=== PATIENT | female | born 1950 | race Caucasian/White ===

== ENCOUNTER 2018-10-07 13:06 | Emergency (ER) | payer MEDICARE, OTHER ==
[2018-10-07 13:22] VITALS: BP 147/77
[2018-10-07] MEDS ORDERED: HYDROmorphone 1 MG/ML Syringe IVPUSH ONE ×3 (13:33→15:46)
[2018-10-07] MEDS ORDERED: Ondansetron 4 MG/2 ML SDV IV ONE (13:33)
--- NOTE | 2018-10-07 13:43 | EDM.PDOC ---
<Tracy Anne R - Last Filed: 10/07/18 14:44> ED HPI GENERAL MEDICAL PROBLEM - General Chief Complaint: Chest Pain Stated Complaint: SICK Time Seen by Provider: 10/07/18 13:06 Source of Information: Reports: Patient, Family, Old Records, RN, RN Notes Reviewed, Significant Other History Limitations: Reports: No Limitations - History of Present Illness INITIAL COMMENTS - FREE TEXT/NARRATIVE: Patient presents to the Emergency room with complaints of left side chest pain and SOB. The pain and SOB started a few days ago and has progressively worsened. She has had SOB, fever and sweating. She had had a non-productive cough. Pain is worsened by cough and rates pain 10/10. She has had decreased appetite and weakness. She has a history of metastatic colon cancer with mets to the lungs and liver. She had surgery to remove the colon cancer and had a PE afterwards in December 2014. She follows with Dr. Rogers for her oncology care. Onset: Gradual Duration: Getting Worse Location: Reports: Chest Quality: Reports: Sharp Severity: Severe Improves with: Reports: None Worsens with: Reports: Movement (cough) Associated Symptoms: Reports: Cough, Fever/Chills, Loss of Appetite, Malaise, Shortness of Breath Left Chest Pain Score (Numeric/FACES): 10 - Related Data Allergies Allergy/AdvReac Type Severity Reaction Status Date / Time Sulfa (Sulfonamide Allergy Hives Verified 10/07/18 13:47 Antibiotics) Home Meds: Home Meds Acetaminophen 500 mg PO Q6HR PRN 01/01/15 [History] Calcium Carbonate [Calcium] 500 mg PO DAILY 01/01/15 [History] Fenofibrate Nanocrystallized [Fenofibrate] 145 mg PO QPM 01/01/15 [History] Fluticasone Propionate [Flonase] 1 spray NS DAILY PRN 01/01/15 [History] Multivitamin [Multiple Vitamins] 1 each PO DAILY 01/01/15 [History] Rosuvastatin [Crestor] 20 mg PO DAILY 01/01/15 [History] Azelastine HCl [Astepro] 2 spray INH Q12HR 10/07/18 [History] DULoxetine [Cymbalta] 40 mg PO DAILY 10/07/18 [History] Levothyroxine 25 mcg PO DAILY 10/07/18 [History] Omeprazole 20 mg PO DAILY 10/07/18 [History] Past Medical History Cardiovascular History: Reports: Blood Clots/VTE/DVT, High Cholesterol, Hypertension Respiratory History: Reports: PE, Other (See Below) Gastrointestinal History: Reports: Chronic Constipation, GERD Genitourinary History: Reports: Other (See Below) (microscopic hematuria) Musculoskeletal History: Reports: Arthritis, Back Pain, Chronic (spinal stenosis ), Fibromyalgia Oncologic (Cancer) History: Reports: None, Colon Other Oncologic History: mets to liver and lungs - Past Surgical History HEENT Surgical History: Reports: Naso-Sinus Surgery, Tonsillectomy GI Surgical History: Reports: Colon (colon rescetion), Colonoscopy, Other (See Below) (liver biopsy) Female Surgical History: Reports: Breast Reduction Musculoskeletal Surgical History: Reports: Carpal Tunnel, Shoulder Surgery Social & Family History - Living Situation & Occupation Living situation: Reports: Occupation: Retired ED ROS GENERAL - Review of Systems Review Of Systems: See Below Constitutional: Reports: Fever, Malaise, Weakness, Fatigue, Diaphoresis, Decreased Appetite, Weight Loss HEENT: Reports: No Symptoms Respiratory: Reports: Shortness of Breath, Cough Cardiovascular: Reports: Chest Pain, Dyspnea on Exertion, Edema (pedal edema), Orthopnea Endocrine: Reports: Fatigue GI/Abdominal: Reports: Constipation, Decreased Appetite : Reports: No Symptoms Musculoskeletal: Reports: No Symptoms Skin: Reports: Diaphoresis Neurological: Reports: Weakness Psychiatric: Reports: No Symptoms Hematologic/Lymphatic: Reports: No Symptoms Immunologic: Reports: No Symptoms ED EXAM, GENERAL - Physical Exam Exam Limited By: No Limitations General Appearance: Alert, Moderate Distress, Other (chronically ill apearing with history of metastatic colon cancer) Eye Exam: Bilateral Eye: Normal Inspection, PERRL Ears: Normal External Exam, Normal Canal, Hearing Grossly Normal, Normal TMs Ear Exam: Bilateral Ear: TM normal Nose: Normal Inspection, Normal Mucosa, No Blood Throat/Mouth: Normal Inspection, Normal Lips, Normal Teeth, Normal Gums, Normal Oropharynx, Normal Voice, No Airway Compromise, Other (dry mouth) Head: Atraumatic, Normocephalic Neck: Normal Inspection, Supple, Non-Tender, Full Range of Motion Respiratory/Chest: Decreased Breath Sounds, Crackles, Other (left side chest tender to palpation) Cardiovascular: Normal Peripheral Pulses, Regular Rate, Rhythm, No Gallop, No JVD, No Murmur, No Rub Peripheral Pulses: 2+: Posterior Tibial (L), Posterior Tibial (R) GI/Abdominal: Normal Bowel Sounds, Soft, Non-Tender, No Organomegaly, No Distention, No Abnormal Bruit, No Mass Back Exam: Normal Inspection, Full Range of Motion, NT Extremities: Normal Inspection, Normal Range of Motion, Non-Tender, Normal Capillary Refill, Pedal Edema Neurological: Alert, Oriented, CN II-XII Intact, Normal Cognition, Normal Gait, Normal Reflexes, No Motor/Sensory Deficits Psychiatric: Normal Affect, Normal Mood Skin Exam: Warm, Dry, Intact, Normal Color, No Rash Lymphatic: No Adenopathy EKG INTERPRETATION EKG Date: 10/07/18 Time: 13:32 Rhythm: NSR Rate (Beats/Min): 103 [place]: Normal P-Wave: Present QRS: Other (Neurocomplex with Q wave in III and AVF) ST-T: Normal QT: Normal Comparison: NA - No Prior EKG Course - Vital Signs Last Recorded V/S: Last Vital Signs Temp 35.8 C 10/07/18 13:15 Pulse 106 H 10/07/18 13:15 Resp 32 H 10/07/18 13:15 BP 147/77 H 10/07/18 13:15 Pulse Ox 90 L 10/07/18 13:15 - Orders/Labs/Meds Orders: Active Orders 24 hr Category Date Time Status EKG 12 Lead [EKG Documentation Completion] [RC] STAT Care 10/07/18 13:17 Active CULTURE BLOOD [BC] Stat Lab 10/07/18 13:36 Received UA RFX KESHIA AND CULT IF INDIC [URIN] Stat Lab 10/07/18 13:30 Ordered Aspirin Med 10/07/18 14:46 Once 324 mg PO ONETIME ONE Piperacillin/Tazobactam [Zosyn] 4.5 gm Med 10/07/18 14:30 Active Sodium Chloride 0.9% [Normal Saline] 100 ml IV ONETIME Sodium Chloride 0.9% [Normal Saline] 1,000 ml Med 10/07/18 13:52 Active IV .BOLUS Vancomycin 1.25 gm Med 10/07/18 14:31 Active Sodium Chloride 0.9% [Normal Saline] 250 ml IV ONETIME Medication Orders Sodium Chloride (Normal Saline) 1,000 mls @ 999 mls/hr IV .BOLUS ONE Stop: 10/07/18 14:52 Last Admin: 10/07/18 14:07 Dose: 999 mls/hr Piperacillin Sod/Tazobactam (Sod 4.5 gm/ Sodium Chloride) 100 mls @ 200 mls/hr IV ONETIME ONE Stop: 10/07/18 14:59 Vancomycin HCl 1.25 gm/ Sodium (Chloride) 250 mls @ 167 mls/hr IV ONETIME ONE Stop: 10/07/18 16:00 Labs: Laboratory Tests 10/07/18 10/07/18 10/07/18 Range/Units 13:36 13:36 13:36 WBC 31.0 H* (5.0-10.0) 10^3/uL RBC 3.09 L (4.2-5.4) 10^6/uL Hgb 11.4 L D (12.0-16.0) g/dL Hct 34.6 L (37.0-47.0) % MCV 112.0 H D (80-100) fL MCH 36.9 H (27.0-34.0) pg MCHC 32.9 L (33.0-35.0) g/dL Plt Count 203 D (150-450) 10^3/uL Add Manual Diff Yes Neutrophils % (Manual) 68 (42-75) % Band Neutrophils % 20 % Lymphocytes % (Manual) 5 L (20-50) % Monocytes % (Manual) 7 (2-8) % Sodium 134 L (135-145) mmol/L Potassium 3.6 (3.6-5.0) mmol/L Chloride 93 L (101-111) mmol/L Carbon Dioxide 27.0 (21.0-31.0) mmol/L Anion Gap 17.6 BUN 14 (7-18) mg/dL Creatinine 0.6 (0.6-1.3) mg/dL Est Cr Clr Drug Dosing 89.69 mL/min Estimated GFR (MDRD) > 60 BUN/Creatinine Ratio 23.33 Glucose 109 H (74-105) mg/dL Lactic Acid 1.8 (0.5-2.2) mmol/L Calcium 9.1 (8.4-10.2) mg/dl Total Bilirubin 0.9 (0.2-1.0) mg/dL AST 28 (10-42) IU/L ALT 16 (10-60) IU/L Alkaline Phosphatase 196 H (42-121) IU/L Lactate Dehydrogenase (91-180) IU/L Troponin I 0.12 H* (0.00-0.02) ng/ml Total Protein 7.1 (6.7-8.2) g/dl Albumin 2.7 L (3.2-5.5) g/dl Globulin 4.4 Albumin/Globulin Ratio 0.61 10/07/18 Range/Units 13:36 WBC (5.0-10.0) 10^3/uL RBC (4.2-5.4) 10^6/uL Hgb (12.0-16.0) g/dL Hct (37.0-47.0) % MCV (80-100) fL MCH (27.0-34.0) pg MCHC (33.0-35.0) g/dL Plt Count (150-450) 10^3/uL Add Manual Diff Neutrophils % (Manual) (42-75) % Band Neutrophils % % Lymphocytes % (Manual) (20-50) % Monocytes % (Manual) (2-8) % Sodium (135-145) mmol/L Potassium (3.6-5.0) mmol/L Chloride (101-111) mmol/L Carbon Dioxide (21.0-31.0) mmol/L Anion Gap BUN (7-18) mg/dL Creatinine (0.6-1.3) mg/dL Est Cr Clr Drug Dosing mL/min Estimated GFR (MDRD) BUN/Creatinine Ratio Glucose (74-105) mg/dL Lactic Acid (0.5-2.2) mmol/L Calcium (8.4-10.2) mg/dl Total Bilirubin (0.2-1.0) mg/dL AST (10-42) IU/L ALT (10-60) IU/L Alkaline Phosphatase (42-121) IU/L Lactate Dehydrogenase 161 (91-180) IU/L Troponin I (0.00-0.02) ng/ml Total Protein (6.7-8.2) g/dl Albumin (3.2-5.5) g/dl Globulin Albumin/Globulin Ratio Meds: Medications Generic Name Dose Route Start Last Admin Trade Name Freq PRN Reason Stop Dose Admin Sodium Chloride 1,000 mls @ 999 mls/hr 10/07/18 13:52 10/07/18 14:07 Normal Saline IV 10/07/18 14:52 999 mls/hr .BOLUS ONE Administration Piperacillin Sod/Tazobactam 100 mls @ 200 mls/hr 10/07/18 14:30 Sod 4.5 gm/ Sodium Chloride IV 10/07/18 14:59 ONETIME ONE Vancomycin HCl 1.25 gm/ Sodium 250 mls @ 167 mls/hr 10/07/18 14:31 Chloride IV 10/07/18 16:00 ONETIME ONE Discontinued Medications Generic Name Dose Route Start Last Admin Trade Name Freq PRN Reason Stop Dose Admin Hydromorphone HCl 0.5 mg 10/07/18 13:33 10/07/18 13:43 Dilaudid IVPUSH 10/07/18 13:34 0.5 mg ONETIME ONE Administration Hydromorphone HCl 0.5 mg 10/07/18 13:58 10/07/18 14:09 Dilaudid IVPUSH 10/07/18 13:59 0.5 mg ONETIME ONE Administration Levofloxacin/Dextrose 750 mg/ 150 mls @ 100 mls/hr 10/07/18 13:54 10/07/18 14 :14 Premix IV 10/07/18 15:23 100 mls/hr ONETIME ONE Administration Ondansetron HCl 4 mg 10/07/18 13:33 10/07/18 13:43 Zofran IV 10/07/18 13:34 4 mg ONETIME ONE Administration - Radiology Interpretation Free Text/Narrative:: Chest X-ray showed multiple new nodular mass lesions characteristic of metastatic cancer and left dense lingular consolidation Departure - Departure Disposition: DC/Tfer to [facility] Clinical Impression: Sepsis due to pneumonia, Colon cancer metastasized to lung, Elevated troponin, History of pulmonary embolism - Discharge Information Referrals: PCP,None [Ordering Only Provider] - Forms: ED Department Discharge, Interfacility Transfer EMTALA - My Orders Last 24 Hours: My Active Orders 10/07/18 13:30 UA RFX KESHIA AND CULT IF INDIC [URIN] Stat 10/07/18 13:36 CULTURE BLOOD [BC] Stat 10/07/18 14:30 Piperacillin/Tazobactam [Zosyn] 4.5 gm Sodium Chloride 0.9% [Normal Saline] 100 ml IV ONETIME 10/07/18 14:31 Vancomycin 1.25 gm Sodium Chloride 0.9% [Normal Saline] 250 ml IV ONETIME 10/07/18 14:46 Aspirin 324 mg PO ONETIME ONE - Assessment/Plan Last 24 Hours: My Active Orders 10/07/18 13:30 UA RFX KESHIA AND CULT IF INDIC [URIN] Stat 10/07/18 13:36 CULTURE BLOOD [BC] Stat 10/07/18 14:30 Piperacillin/Tazobactam [Zosyn] 4.5 gm Sodium Chloride 0.9% [Normal Saline] 100 ml IV ONETIME 10/07/18 14:31 Vancomycin 1.25 gm Sodium Chloride 0.9% [Normal Saline] 250 ml IV ONETIME 10/07/18 14:46 Aspirin 324 mg PO ONETIME ONE <Abe Dumont - Last Filed: 10/07/18 14:47> Social & Family History - Family History Family Medical History: Noncontributory - Tobacco Use Smoking Status *Q: Former Smoker - Living Situation & Occupation Living situation: Reports: with Spouse ED EXAM, GENERAL - Physical Exam Exam: See Below Course - Re-Assessments/Exams Free Text/Narrative Re-Assessment/Exam: 10/07/18 14:36 I personally performed or re-performed the physical examination and medical decision making. I have verified all student documentation or findings, including history, physical exam and/or medical decision making. Departure - Departure Time of Disposition: 14:33 Condition: Critical - Discharge Information *PRESCRIPTION DRUG MONITORING PROGRAM REVIEWED*: No *COPY OF PRESCRIPTION DRUG MONITORING REPORT IN PATIENT STACI: No
[2018-10-07] MEDS ORDERED: Sodium Chloride 0.9% 1,000 ML IV ONE (13:52)
[2018-10-07] MEDS ORDERED: Levofloxacin/Dextrose 5%-Water 750 MG in Premix Bag 1 BAG IV ONE (13:54)
[2018-10-07 14:06] LABS: ANION GAP 17.6; CHLORIDE,CL 93 mmol/L (101-111); SODIUM,NA 134 mmol/L (135-145)
--- NOTE | 2018-10-07 14:19 | CR ---
Clinical history: 68-year-old female with history of "colon cancer and pulmonary embolism" (2014) who presents emergency department [facility] now with chest pain. Interpretation: Abnormal. Right supraclavicular central venous infusion line. External phototypesetting equipment monitor leads. Oxygen cannula. Multiple new nodular mass lesions, both lung lawrence since CT exam 12 Jan 2015 characteristic of metastatic cancer. Dense lingular consolidation silhouetting the left heart border which may represent lobar pneumonia. Clinical? Normal cardiac silhouette without cephalization of vascular flow, alveolar edema or appreciable dependent pleural effusion.
[2018-10-07] MEDS ORDERED: Piperacillin/Tazobactam 4.5 GM in Sodium Chloride 0.9% 100 ML IV ONE (14:30)
[2018-10-07] MEDS ORDERED: Aspirin 81 MG Tab.Chew PO ONE (14:46)
== END 2018-10-07 16:12 ==
LOC: DL.ED 13:06
DX: A41.9 Sepsis, unspecified organism (principal); J18.9 Pneumonia, unspecified organism; C18.9 Malignant neoplasm of colon, unspecified; C78.00 Secondary malignant neoplasm of unspecified lung; R79.89 Other specified abnormal findings of blood chemistry; E78.00 Pure hypercholesterolemia, unspecified; I10 Essential (primary) hypertension; Z86.711 Personal history of pulmonary embolism; Z79.899 Other long term (current) drug therapy; Z87.891 Personal history of nicotine dependence
CPT/HCPCS: 36415; 71046; 80053; 81001; 83605; 83615; 84484; 85025; 87040; 93005; 96365; 96366; 96368; 96375; 96376; 99285; A9270; J1170; J1956; J2405; J2543; J3370; J7030; J7050; 87077

== ENCOUNTER → 2019-01-08 | Outpatient (CLI) | payer MEDICARE, OTHER ==
[2019-01-08 14:32] LABS: ANION GAP 15.7; CHLORIDE,CL 91 mmol/L (101-111); SODIUM,NA 136 mmol/L (135-145)
== END ==
LOC: DL.NPLAB 14:12
PROVIDERS: ATTEND Internal Medicine Hematology & Oncology
DX: Z45.2 Encounter for adjustment and management of vascular access device (principal); C18.7 Malignant neoplasm of sigmoid colon; E83.42 Hypomagnesemia
CPT/HCPCS: 80053; 83735; 85025

== ENCOUNTER 2019-01-22 11:45 | Inpatient (IN) | payer MEDICARE, OTHER ==
[2019-01-22] MEDS ORDERED: Sodium Chloride 0.9% 1,000 ML IV ONE (12:20)
[2019-01-22 13:20] LABS: ANION GAP 16.2; CHLORIDE,CL 80 mmol/L (101-111); SODIUM,NA 128 mmol/L (135-145)
--- NOTE | 2019-01-22 13:33 | CR ---
Clinical history: 68-year-old cancer patient stage IV carcinoma the lung (several years) and chest pain. Interpretation: Upright AP portable chest film markedly abnormal and decidedly changed since 07 October 2018 comparison. Normal cardiac silhouette without cephalization of flow or alveolar edema. Many of the large parenchymal lung mass lesions (07 October exam) have increased in size and/or coalesced. Dependent new pleural effusion obscuring the right costophrenic sulcus, lung base. No sign of mechanical bowel obstruction or free subdiaphragmatic air but chronic asymmetric elevation right hemidiaphragm.
--- NOTE | 2019-01-22 14:38 | EDM.PDOC ---
ED HPI GENERAL MEDICAL PROBLEM - General Chief Complaint: Respiratory Problem Stated Complaint: AMBULANCE/SOB Time Seen by Provider: 01/22/19 12:07 Source of Information: Reports: Patient, EMS, EMS Notes Reviewed, RN, RN Notes Reviewed - History of Present Illness INITIAL COMMENTS - FREE TEXT/NARRATIVE: Patient presents to ER per [facility] with complaint of increased shortness of breath. She also has overall weakness, unable to get up and ambulate without exhaustion. She noticed increased shortness of breath this week as well as loss of energy. Last treatment was 5 weeks ago. She has had cough and shortness of breath. No fever, chills, nausea, vomiting or diarrhea. Onset: Gradual Duration: Getting Worse Location: Reports: Chest Quality: Reports: Ache, Throbbing Improves with: Reports: None Worsens with: Reports: None Associated Symptoms: Reports: No Other Symptoms - Related Data Allergies Allergy/AdvReac Type Severity Reaction Status Date / Time Sulfa (Sulfonamide Allergy Hives Verified 01/22/19 15:22 Antibiotics) Home Meds: Home Meds Acetaminophen 500 mg PO Q6HR PRN 01/01/15 [History] Calcium Carbonate [Calcium] 500 mg PO DAILY 01/01/15 [History] Fenofibrate Nanocrystallized [Fenofibrate] 145 mg PO QPM 01/01/15 [History] Fluticasone Propionate [Flonase] 1 spray NS DAILY PRN 01/01/15 [History] Multivitamin [Multiple Vitamins] 1 each PO DAILY 01/01/15 [History] Rosuvastatin [Crestor] 20 mg PO DAILY 01/01/15 [History] Azelastine HCl [Astepro] 2 spray INH Q12HR 10/07/18 [History] DULoxetine [Cymbalta] 40 mg PO DAILY 10/07/18 [History] Levothyroxine 25 mcg PO DAILY 10/07/18 [History] Omeprazole 20 mg PO DAILY 10/07/18 [History] Past Medical History HEENT History: Reports: Impaired Vision Cardiovascular History: Reports: Blood Clots/VTE/DVT, High Cholesterol, Hypertension Respiratory History: Reports: PE, Other (See Below) Gastrointestinal History: Reports: Chronic Constipation, GERD Genitourinary History: Reports: Other (See Below) HADOOP ANALYST History: Reports: Other (See Below) Other HADOOP ANALYST History: breast reduction surgery about 15 years ago Musculoskeletal History: Reports: Arthritis, Back Pain, Chronic, Fibromyalgia Neurological History: Reports: None Psychiatric History: Reports: Anxiety Endocrine/Metabolic History: Reports: Hypothyroidism Hematologic History: Reports: None Immunologic History: Reports: None Oncologic (Cancer) History: Reports: Colon, Liver, Lung Other Oncologic History: mets to liver and lungs Dermatologic History: Reports: None - Infectious Disease History Infectious Disease History: Reports: None - Past Surgical History HEENT Surgical History: Reports: Naso-Sinus Surgery, Tonsillectomy GI Surgical History: Reports: Colon, Colonoscopy, Other (See Below) Female Surgical History: Reports: Breast Reduction Musculoskeletal Surgical History: Reports: Carpal Tunnel, Shoulder Surgery Social & Family History - Family History Family Medical History: Noncontributory - Tobacco Use Smoking Status *Q: Unknown Ever Smoked - Caffeine Use Caffeine Use: Reports: None - Recreational Drug Use Recreational Drug Use: No - Living Situation & Occupation Living situation: Reports: with Spouse Occupation: Retired ED ROS GENERAL - Review of Systems Review Of Systems: ROS reveals no pertinent complaints other than HPI. ED EXAM, GENERAL - Physical Exam Exam: See Below Exam Limited By: No Limitations General Appearance: Cachetic, Other (pallor and diaphoretic) Eye Exam: Bilateral Eye: EOMI, Normal Inspection, PERRL Ears: Normal External Exam, Normal Canal, Hearing Grossly Normal, Normal TMs Nose: Normal Inspection, Normal Mucosa, No Blood Throat/Mouth: Normal Inspection, Normal Lips, Normal Teeth, Normal Gums, Normal Oropharynx, Normal Voice, No Airway Compromise Head: Atraumatic, Normocephalic Neck: Normal Inspection, Supple, Non-Tender, Full Range of Motion Respiratory/Chest: Crackles (throughout), Rhonchi (throughout) Cardiovascular: Normal Peripheral Pulses, Regular Rate, Rhythm, No Edema, No Gallop, No JVD, No Murmur, No Rub GI/Abdominal: Normal Bowel Sounds, Soft, Non-Tender, No Organomegaly, No Distention, No Abnormal Bruit, No Mass (Female) Exam: Deferred Rectal (Female) Exam: Deferred Back Exam: Normal Inspection, Full Range of Motion, NT Extremities: Normal Inspection, Normal Range of Motion, Non-Tender, Normal Capillary Refill, No Pedal Edema Neurological: Alert, Oriented, CN II-XII Intact, Normal Cognition, Normal Gait, Normal Reflexes, No Motor/Sensory Deficits Psychiatric: Flat Affect Skin Exam: Other (pale) Lymphatic: No Adenopathy Course - Vital Signs Last Recorded V/S: Last Vital Signs Temp 97.3 F 01/22/19 15:29 Pulse 105 H 01/22/19 15:29 Resp 24 H 01/22/19 15:29 BP 165/95 H 01/22/19 15:29 Pulse Ox 91 L 01/22/19 15:29 - Orders/Labs/Meds Orders: Active Orders 24 hr Category Date Time Status CULTURE BLOOD [BC] Stat Lab 01/22/19 13:03 Ordered CULTURE BLOOD [BC] Stat Lab 01/22/19 13:13 Received Blood Culture x2 Reflex Set [OM.PC] Stat Oth 01/22/19 13:03 Ordered Medication Orders Acetaminophen (Tylenol) 650 mg PO Q4H PRN PRN Reason: Pain Docusate Sodium (Colace) 100 mg PO BID PRN PRN Reason: Constipation Heparin Sodium (Porcine) (Heparin Sodium) 5,000 units SUBCUT Q8HR [facility] Piperacillin Sod/Tazobactam (Sod 3.375 gm/ Sodium Chloride) 100 mls @ 200 mls/ hr IV Q6HR ALEX Vancomycin HCl 1 gm/ Sodium (Chloride) 250 mls @ 166.667 mls/hr IV Q8H ALEX Ondansetron HCl (Zofran Odt) 4 mg PO Q6H PRN PRN Reason: nausea, able to take PO Ondansetron HCl (Zofran) 4 mg IVPUSH Q6H PRN PRN Reason: Nausea/Vomiting Polyethylene Glycol (Miralax) 17 gm PO DAILY PRN PRN Reason: Constipation Promethazine HCl (Phenergan) 25 mg PO Q6H PRN PRN Reason: nausea, able to take PO Promethazine HCl (Phenergan) 12.5 mg IM Q6H PRN PRN Reason: Nausea/Vomiting Senna/Docusate Sodium (Senna Plus) 1 tab PO BEDTIME PRN PRN Reason: Constipation Vancomycin HCl (Pharmacy To Dose - Vancomycin) 1 dose .XX ASDIRECTED [facility] Labs: Laboratory Tests 01/22/19 01/22/19 01/22/19 Range/Units 12:49 12:49 12:49 WBC 17.5 H (5.0-10.0) 10^3/uL RBC 4.10 L (4.2-5.4) 10^6/uL Hgb 13.1 (12.0-16.0) g/dL Hct 42.1 (37.0-47.0) % MCV 102.7 H (80-100) fL MCH 32.0 (27.0-34.0) pg MCHC 31.1 L (33.0-35.0) g/dL Plt Count 235 D (150-450) 10^3/uL Neut % (Auto) 91.6 H (42.2-75.2) % Lymph % (Auto) 1.7 L (20.5-50.1) % [place] % (Auto) 6.0 (2-8) % Eos % (Auto) 0.6 L (1.0-3.0) % Baso % (Auto) 0.1 (0.0-1.0) % PT 10.2 (9.0-12.0) SEC INR 1.0 (0.9-1.2) Sodium 128 L (135-145) mmol/L Potassium 4.2 (3.6-5.0) mmol/L Chloride 80 L (101-111) mmol/L Carbon Dioxide 36.0 H (21.0-31.0) mmol/L Anion Gap 16.2 BUN 19 H (7-18) mg/dL Creatinine 0.4 L (0.6-1.3) mg/dL Est Cr Clr Drug Dosing 134.54 mL/min Estimated GFR (MDRD) > 60 BUN/Creatinine Ratio 47.50 Glucose 137 H (74-105) mg/dL Lactic Acid (0.5-2.2) mmol/L Calcium 8.9 (8.4-10.2) mg/dl Total Bilirubin 1.0 (0.2-1.0) mg/dL AST 34 (10-42) IU/L ALT 20 (10-60) IU/L Alkaline Phosphatase 155 H (42-121) IU/L Troponin I 0.03 H* (0.00-0.02) ng/ml B-Natriuretic Peptide 85 (0-100) pg/ml Total Protein 6.2 L (6.7-8.2) g/dl Albumin 2.8 L (3.2-5.5) g/dl Globulin 3.4 Albumin/Globulin Ratio 0.82 Urine Color (YELLOW) Urine Appearance (CLEAR) Urine pH (5.0-9.0) Ur Specific [place] (1.005-1.030) Urine Protein (NEGATIVE) Urine Glucose (UA) (NEGATIVE) Urine Ketones (NEGATIVE) Urine Occult Blood (NEGATIVE) Urine Nitrite (NEGATIVE) Urine Bilirubin (NEGATIVE) Urine Urobilinogen (0.2-1.0) mg/dL Ur Leukocyte Esterase (NEGATIVE) Urine RBC /HPF Urine WBC (0-5/HPF) /HPF Ur Epithelial Cells (NOT SEEN) /HPF Urine Bacteria (0-FEW/HPF) /HPF Urine Mucus (NOT SEEN) /LPF Urinalysis Comment 01/22/19 01/22/19 Range/Units 13:10 13:13 WBC (5.0-10.0) 10^3/uL RBC (4.2-5.4) 10^6/uL Hgb (12.0-16.0) g/dL Hct (37.0-47.0) % MCV (80-100) fL MCH (27.0-34.0) pg MCHC (33.0-35.0) g/dL Plt Count (150-450) 10^3/uL Neut % (Auto) (42.2-75.2) % Lymph % (Auto) (20.5-50.1) % [place] % (Auto) (2-8) % Eos % (Auto) (1.0-3.0) % Baso % (Auto) (0.0-1.0) % PT (9.0-12.0) SEC INR (0.9-1.2) Sodium (135-145) mmol/L Potassium (3.6-5.0) mmol/L Chloride (101-111) mmol/L Carbon Dioxide (21.0-31.0) mmol/L Anion Gap BUN (7-18) mg/dL Creatinine (0.6-1.3) mg/dL Est Cr Clr Drug Dosing mL/min Estimated GFR (MDRD) BUN/Creatinine Ratio Glucose (74-105) mg/dL Lactic Acid 1.3 (0.5-2.2) mmol/L Calcium (8.4-10.2) mg/dl Total Bilirubin (0.2-1.0) mg/dL AST (10-42) IU/L ALT (10-60) IU/L Alkaline Phosphatase (42-121) IU/L Troponin I (0.00-0.02) ng/ml B-Natriuretic Peptide (0-100) pg/ml Total Protein (6.7-8.2) g/dl Albumin (3.2-5.5) g/dl Globulin Albumin/Globulin Ratio Urine Color Jessica (YELLOW) Urine Appearance Slightly cloudy (CLEAR) Urine pH 6.5 (5.0-9.0) Ur Specific [place] >= 1.030 (1.005-1.030) Urine Protein >=300 H (NEGATIVE) Urine Glucose (UA) Negative (NEGATIVE) Urine Ketones Negative (NEGATIVE) Urine Occult Blood Trace-intact H (NEGATIVE) Urine Nitrite Negative (NEGATIVE) Urine Bilirubin Small H (NEGATIVE) Urine Urobilinogen 1.0 (0.2-1.0) mg/dL Ur Leukocyte Esterase Negative (NEGATIVE) Urine RBC 5-10 H /HPF Urine WBC 0-5 (0-5/HPF) /HPF Ur Epithelial Cells Few (NOT SEEN) /HPF Urine Bacteria Rare (0-FEW/HPF) /HPF Urine Mucus Few H (NOT SEEN) /LPF Urinalysis Comment Meds: Medications Generic Name Dose Route Start Last Admin Trade Name Freq PRN Reason Stop Dose Admin Acetaminophen 650 mg 01/22/19 15:29 Tylenol PO Q4H PRN Pain Docusate Sodium 100 mg 01/22/19 15:29 Colace PO BID PRN Constipation Heparin Sodium (Porcine) 5,000 units 01/22/19 22:00 Heparin Sodium SUBCUT Q8HR [facility] Piperacillin Sod/Tazobactam 100 mls @ 200 mls/hr 01/22/19 18:00 Sod 3.375 gm/ Sodium Chloride IV Q6HR ALEX Vancomycin HCl 1 gm/ Sodium 250 mls @ 166.667 mls/hr 01/22/19 16:00 Chloride IV Q8H ALEX Ondansetron HCl 4 mg 01/22/19 15:29 Zofran Odt PO Q6H PRN nausea, able to take PO Ondansetron HCl 4 mg 01/22/19 15:29 Zofran IVPUSH Q6H PRN Nausea/Vomiting Polyethylene Glycol 17 gm 01/22/19 15:29 Miralax PO DAILY PRN Constipation Promethazine HCl 25 mg 01/22/19 15:29 Phenergan PO Q6H PRN nausea, able to take PO Promethazine HCl 12.5 mg 01/22/19 15:29 Phenergan IM Q6H PRN Nausea/Vomiting Senna/Docusate Sodium 1 tab 01/22/19 15:29 Senna Plus PO BEDTIME PRN Constipation Vancomycin HCl 1 dose 01/22/19 15:45 Pharmacy To Dose - Vancomycin .XX ASDIRECTED ALEX Discontinued Medications Generic Name Dose Route Start Last Admin Trade Name Freq PRN Reason Stop Dose Admin Sodium Chloride 1,000 mls @ 999 mls/hr 01/22/19 12:20 01/22/19 12:57 Normal Saline IV 01/22/19 13:20 999 mls/hr .BOLUS ONE Administration - Radiology Interpretation Free Text/Narrative:: Chest xray: Changed since Oct 07, 2018 film Many of the large parenchymal lung mass lesions have increased in size and/or calesced Dependent new pleural effusion obscuring the right costophrenic sulcus, lung base. No sign of mechanical bowel obstruction or free subdiaphragmatic air but chronic asymmetric elevation right hemidiaphragm See rad report - Re-Assessments/Exams Free Text/Narrative Re-Assessment/Exam: 01/22/19 14:36 Patient case discussed with Dr. Rogers who states the patient can be admitted here in [place], given abx, and diuresed. They will re-evaluate the pt status in 1-2 days, hospice may be needed. Patient case discussed with Dr. Flood who agreed to accept the patient for inpatient admission. Departure - Departure Time of Disposition: 14:38 Disposition: Admitted As Inpatient 68 Condition: Poor Clinical Impression: Stage 4 lung cancer Qualifiers: Laterality: unspecified laterality Qualified Code(s): C34.90 - Malignant neoplasm of unspecified part of unspecified bronchus or lung Pneumonia Qualifiers: Pneumonia type: due to unspecified organism Laterality: bilateral Lung location : unspecified part of lung Qualified Code(s): J18.9 - Pneumonia, unspecified organism - Discharge Information *PRESCRIPTION DRUG MONITORING PROGRAM REVIEWED*: No *COPY OF PRESCRIPTION DRUG MONITORING REPORT IN PATIENT STACI: No - My Orders Last 24 Hours: My Active Orders 01/22/19 13:03 CULTURE BLOOD [BC] Stat Blood Culture x2 Reflex Set [OM.PC] Stat 01/22/19 13:13 CULTURE BLOOD [BC] Stat - Assessment/Plan Last 24 Hours: My Active Orders 01/22/19 13:03 CULTURE BLOOD [BC] Stat Blood Culture x2 Reflex Set [OM.PC] Stat 01/22/19 13:13 CULTURE BLOOD [BC] Stat
[2019-01-22] MEDS ORDERED: Ondansetron 4 MG/2 ML SDV IVPUSH PRN (15:29)
[2019-01-22] MEDS ORDERED: Ondansetron 4 MG Tab.DIS PO PRN (15:29)
[2019-01-22] MEDS ORDERED: Promethazine 25 MG Tab PO PRN (15:29)
[2019-01-22] MEDS ORDERED: Acetaminophen 325 MG Tab PO PRN (15:29)
[2019-01-22] MEDS ORDERED: Promethazine 25 MG/ML SDV IM PRN (15:29)
[2019-01-22] MEDS ORDERED: Docusate Sodium 100 MG Cap PO PRN (15:29)
[2019-01-22] MEDS ORDERED: Polyethylene Glycol 3350 Powder 17 GM Packet PO PRN (15:29)
--- NOTE | 2019-01-22 15:39 | PCM.HP ---
H&P History of Present Illness - General Date of Service: 01/22/19 Admit Problem/Dx: Admission Diagnosis/Problem Admission Diagnosis/Problem Sepsis due to pneumonia - History of Present Illness Initial Comments - Free Text/Narative: Patient is a 68 y.o female with medical history significant for Stage IV colon cancer with mets to the lung, HTN, GERD, hypothyroidism, dyslipidemia, and chronic respiratory failure with hypoxia on chronic O2 therapy who presented to to the ED with complaints of worsening shortness of breath and fluid retention. Patient reports that she has gotten progressively short of breath to the point that she cannot take a step without getting short of breath. at bedside reports that paitent could walk about 30 feet from the living room to the bathroom on Saturday. Patient reports intermittent non-productive cough. She reports abdominal distention and swelling of the lower extremities. She reports nausea without emesis. She denies fevers, chills, chest pain, abdominal pain, diarrhea, constipation, melena, hematochezia, or dysuria. No other complaints - Related Data Allergies/Adverse Reactions: Allergies Allergy/AdvReac Type Severity Reaction Status Date / Time Sulfa (Sulfonamide Allergy Hives Verified 01/22/19 15:22 Antibiotics) Home Medications: Home Meds Acetaminophen 500 mg PO Q6HR PRN 01/01/15 [History] Calcium Carbonate [Calcium] 500 mg PO DAILY 01/01/15 [History] Fenofibrate Nanocrystallized [Fenofibrate] 145 mg PO QPM 01/01/15 [History] Fluticasone Propionate [Flonase] 1 spray NS DAILY PRN 01/01/15 [History] Multivitamin [Multiple Vitamins] 1 each PO DAILY 01/01/15 [History] Rosuvastatin [Crestor] 20 mg PO DAILY 01/01/15 [History] Azelastine HCl [Astepro] 2 spray INH Q12HR 10/07/18 [History] DULoxetine [Cymbalta] 40 mg PO DAILY 10/07/18 [History] Levothyroxine 25 mcg PO DAILY 10/07/18 [History] Omeprazole 20 mg PO DAILY 10/07/18 [History] Past Medical History HEENT History: Reports: Impaired Vision Cardiovascular History: Reports: Blood Clots/VTE/DVT, High Cholesterol, Hypertension Respiratory History: Reports: PE, Other (See Below) Gastrointestinal History: Reports: Chronic Constipation, GERD Genitourinary History: Reports: Other (See Below) 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 (See Below) Other OB/BYN History: breast reduction surgery about 15 years ago Musculoskeletal History: Reports: Arthritis, Back Pain, Chronic, Fibromyalgia Neurological History: Reports: None Psychiatric History: Reports: Anxiety Endocrine/Metabolic History: Reports: Hypothyroidism Hematologic History: Reports: None Immunologic History: Reports: None Oncologic (Cancer) History: Reports: Colon, Liver, Lung Other Oncologic History: mets to liver and lungs Dermatologic History: Reports: None - Infectious Disease History Infectious Disease History: Reports: None - Past Surgical History HEENT Surgical History: Reports: Naso-Sinus Surgery, Tonsillectomy GI Surgical History: Reports: Colon, Colonoscopy, Other (See Below) Female Surgical History: Reports: Breast Reduction Musculoskeletal Surgical History: Reports: Carpal Tunnel, Shoulder Surgery Social & Family History - Family History Family Medical History: Noncontributory - Tobacco Use Smoking Status *Q: Former Smoker Used Tobacco, but Quit: Yes Month/Year Tobacco Last Used: Early 20s for 3 years Second Hand Smoke Exposure: No - Caffeine Use Caffeine Use: Reports: None - Recreational Drug Use Recreational Drug Use: No - Living Situation & Occupation Living situation: Reports: with Spouse Occupation: Retired H&P Review of Systems - Review of Systems: Review Of Systems: ROS reveals no pertinent complaints other than HPI. Exam - Exam Exam: See Below - Vital Signs Vital Signs: Last Vital Signs Temp 97.8 F 01/22/19 11:46 Pulse 100 01/22/19 11:46 Resp 40 H 01/22/19 11:46 BP 168/83 H 01/22/19 11:46 Pulse Ox 90 L 01/22/19 11:46 Weight: 157 lb 12.8 oz - Exam Physical Exam Comments:: General: Alert and oriented to place, time and person. Ill appearing. at bedside Head: atraumatic and normocephalic. Eyes: PERRLA, EOMI, anicteric, Ear, Nose and Throat: No gross abnormality found Neck: Supple Respiratory/Chest: Bilateral crackles, with decreased air movement. No wheezes, rales, or rhonci; Nasal cannula in place. CVS: Tachycardic, RR, no murmur, rub, or gallop, peripheral pulses palpable. Gastrointestinal/Abd: Soft, mildly distended; non-tender. Normal bowel sounds. Skin: No acute rashes noted. Neuro: Grossly non-focal. No cranial nerve abnormality. Moves all extremities. Psych: Alert and oriented to place time and person. No hallucinations or delusions noted. Musculoskeletal: No abnormality noted. Ext: 2+ pitting edema of BLE. No ulcers, no tenderness, no size differences, - Patient Data Lab Results Last 24 hrs: Laboratory Results - last 24 hr 01/22/19 01/22/19 01/22/19 Range/Units 12:49 12:49 12:49 WBC 17.5 H (5.0-10.0) 10^3/uL RBC 4.10 L (4.2-5.4) 10^6/uL Hgb 13.1 (12.0-16.0) g/dL Hct 42.1 (37.0-47.0) % MCV 102.7 H (80-100) fL MCH 32.0 (27.0-34.0) pg MCHC 31.1 L (33.0-35.0) g/dL Plt Count 235 D (150-450) 10^3/uL Neut % (Auto) 91.6 H (42.2-75.2) % Lymph % (Auto) 1.7 L (20.5-50.1) % [place] % (Auto) 6.0 (2-8) % Eos % (Auto) 0.6 L (1.0-3.0) % Baso % (Auto) 0.1 (0.0-1.0) % PT 10.2 (9.0-12.0) SEC INR 1.0 (0.9-1.2) Sodium 128 L (135-145) mmol/L Potassium 4.2 (3.6-5.0) mmol/L Chloride 80 L (101-111) mmol/L Carbon Dioxide 36.0 H (21.0-31.0) mmol/L Anion Gap 16.2 BUN 19 H (7-18) mg/dL Creatinine 0.4 L (0.6-1.3) mg/dL Est Cr Clr Drug Dosing 134.54 mL/min Estimated GFR (MDRD) > 60 BUN/Creatinine Ratio 47.50 Glucose 137 H (74-105) mg/dL Lactic Acid (0.5-2.2) mmol/L Calcium 8.9 (8.4-10.2) mg/dl Total Bilirubin 1.0 (0.2-1.0) mg/dL AST 34 (10-42) IU/L ALT 20 (10-60) IU/L Alkaline Phosphatase 155 H (42-121) IU/L Troponin I 0.03 H* (0.00-0.02) ng/ml B-Natriuretic Peptide 85 (0-100) pg/ml Total Protein 6.2 L (6.7-8.2) g/dl Albumin 2.8 L (3.2-5.5) g/dl Globulin 3.4 Albumin/Globulin Ratio 0.82 Urine Color (YELLOW) Urine Appearance (CLEAR) Urine pH (5.0-9.0) Ur Specific [place] (1.005-1.030) Urine Protein (NEGATIVE) Urine Glucose (UA) (NEGATIVE) Urine Ketones (NEGATIVE) Urine Occult Blood (NEGATIVE) Urine Nitrite (NEGATIVE) Urine Bilirubin (NEGATIVE) Urine Urobilinogen (0.2-1.0) mg/dL Ur Leukocyte Esterase (NEGATIVE) Urine RBC /HPF Urine WBC (0-5/HPF) /HPF Ur Epithelial Cells (NOT SEEN) /HPF Urine Bacteria (0-FEW/HPF) /HPF Urine Mucus (NOT SEEN) /LPF Urinalysis Comment 01/22/19 01/22/19 Range/Units 13:10 13:13 WBC (5.0-10.0) 10^3/uL RBC (4.2-5.4) 10^6/uL Hgb (12.0-16.0) g/dL Hct (37.0-47.0) % MCV (80-100) fL MCH (27.0-34.0) pg MCHC (33.0-35.0) g/dL Plt Count (150-450) 10^3/uL Neut % (Auto) (42.2-75.2) % Lymph % (Auto) (20.5-50.1) % [place] % (Auto) (2-8) % Eos % (Auto) (1.0-3.0) % Baso % (Auto) (0.0-1.0) % PT (9.0-12.0) SEC INR (0.9-1.2) Sodium (135-145) mmol/L Potassium (3.6-5.0) mmol/L Chloride (101-111) mmol/L Carbon Dioxide (21.0-31.0) mmol/L Anion Gap BUN (7-18) mg/dL Creatinine (0.6-1.3) mg/dL Est Cr Clr Drug Dosing mL/min Estimated GFR (MDRD) BUN/Creatinine Ratio Glucose (74-105) mg/dL Lactic Acid 1.3 (0.5-2.2) mmol/L Calcium (8.4-10.2) mg/dl Total Bilirubin (0.2-1.0) mg/dL AST (10-42) IU/L ALT (10-60) IU/L Alkaline Phosphatase (42-121) IU/L Troponin I (0.00-0.02) ng/ml B-Natriuretic Peptide (0-100) pg/ml Total Protein (6.7-8.2) g/dl Albumin (3.2-5.5) g/dl Globulin Albumin/Globulin Ratio Urine Color Jessica (YELLOW) Urine Appearance Slightly cloudy (CLEAR) Urine pH 6.5 (5.0-9.0) Ur Specific [place] >= 1.030 (1.005-1.030) Urine Protein >=300 H (NEGATIVE) Urine Glucose (UA) Negative (NEGATIVE) Urine Ketones Negative (NEGATIVE) Urine Occult Blood Trace-intact H (NEGATIVE) Urine Nitrite Negative (NEGATIVE) Urine Bilirubin Small H (NEGATIVE) Urine Urobilinogen 1.0 (0.2-1.0) mg/dL Ur Leukocyte Esterase Negative (NEGATIVE) Urine RBC 5-10 H /HPF Urine WBC 0-5 (0-5/HPF) /HPF Ur Epithelial Cells Few (NOT SEEN) /HPF Urine Bacteria Rare (0-FEW/HPF) /HPF Urine Mucus Few H (NOT SEEN) /LPF Urinalysis Comment Result Diagrams: 01/22/19 12:49 01/22/19 12:49 - Problem List (1) Hyponatremia SNOMED Code(s): 47576535 ICD Code: E87.1 - HYPO-OSMOLALITY AND HYPONATREMIA Status: Acute Current Visit: Yes (2) Colon cancer metastasized to lung SNOMED Code(s): 257504220, 487480212 ICD Code: C18.9 - MALIGNANT NEOPLASM OF COLON, UNSPECIFIED; C78.00 - SECONDARY MALIGNANT NEOPLASM OF UNSPECIFIED LUNG Status: Acute Current Visit : No (3) Elevated troponin SNOMED Code(s): 176809874, 042435096, 829227039 ICD Code: R74.8 - ABNORMAL LEVELS OF OTHER SERUM ENZYMES Status: Acute Current Visit: No (4) Pneumonia SNOMED Code(s): 799099305 ICD Code: J18.9 - PNEUMONIA, UNSPECIFIED ORGANISM Status: Acute Current Visit: No Qualifiers: Pneumonia type: due to unspecified organism Laterality: bilateral Lung location: unspecified part of lung Qualified Code(s): J18.9 - Pneumonia, unspecified organism (5) Sepsis due to pneumonia SNOMED Code(s): 85710600 ICD Code: J18.9 - PNEUMONIA, UNSPECIFIED ORGANISM; A41.9 - SEPSIS, UNSPECIFIED ORGANISM Status: Acute Current Visit: No Problem List Initiated/Reviewed/Updated: Yes Orders Last 24hrs: Active Orders 24 hr Category Date Time Status Patient Status [ADT] Routine ADT 01/22/19 15:29 Ordered Ambulate [RC] ASDIRECTED Care 01/22/19 15:29 Ordered Cardiac Monitoring [RC] CONTINUOUS Care 01/22/19 15:30 Ordered EKG Documentation Completion [RC] STAT Care 01/22/19 12:19 Active Intake and Output [RC] QSHIFT Care 01/22/19 15:30 Ordered Oxygen Therapy [RC] PRN Care 01/22/19 15:29 Ordered Up With Assistance [RC] ASDIRECTED Care 01/22/19 15:29 Ordered VTE/DVT Education [RC] PER UNIT ROUTINE Care 01/22/19 15:29 Ordered Vital Signs [RC] Q4H Care 01/22/19 15:29 Ordered 2 Gram Sodium Diet [DIET] Diet 01/22/19 Dinner Ordered BASIC METABOLIC PANEL,BMP [CHEM] AM Lab 01/23/19 05:11 Ordered CBC W/O DIFF,HEMOGRAM [HEME] AM Lab 01/23/19 05:11 Ordered CULTURE BLOOD [BC] Routine Lab 01/22/19 15:34 Ordered CULTURE BLOOD [BC] Stat Lab 01/22/19 13:03 Ordered CULTURE BLOOD [BC] Stat Lab 01/22/19 13:13 Received MAGNESIUM [CHEM] Routine Lab 01/23/19 06:00 Ordered PHOSPHORUS [CHEM] AM Lab 01/23/19 05:11 Ordered Acetaminophen [Tylenol] Med 01/22/19 15:29 Ordered 650 mg PO Q4H PRN Docusate Sodium [Colace] Med 01/22/19 15:29 Ordered 100 mg PO BID PRN Docusate Sodium/Sennosides [Senna Plus] Med 01/22/19 15:29 Ordered 1 tab PO BEDTIME PRN Heparin Sodium Med 01/22/19 22:00 Ordered 5,000 units SUBCUT Q8HR Ondansetron [Zofran ODT] Med 01/22/19 15:29 Ordered 4 mg PO Q6H PRN Ondansetron [Zofran] Med 01/22/19 15:29 Ordered 4 mg IVPUSH Q6H PRN Pharmacy to Dose - Vancomycin Med 01/22/19 15:45 Ordered 1 dose .XX ASDIRECTED Piperacillin/Tazobactam [Zosyn] 3.375 gm Med 01/22/19 15:45 Ordered Sodium Chloride 0.9% [Normal Saline] 100 ml IV Q6H Polyethylene Glycol 3350 [MiraLAX] Med 01/22/19 15:29 Ordered 17 gm PO DAILY PRN Promethazine [Phenergan] Med 01/22/19 15:29 Ordered 12.5 mg IM Q6H PRN Promethazine [Phenergan] Med 01/22/19 15:29 Ordered 25 mg PO Q6H PRN Blood Culture x2 Reflex Set [OM.PC] Stat Oth 01/22/19 13:03 Ordered Resuscitation Status Routine Resus Stat 01/22/19 15:29 Ordered Medication Orders Acetaminophen (Tylenol) 650 mg PO Q4H PRN PRN Reason: Pain Docusate Sodium (Colace) 100 mg PO BID PRN PRN Reason: Constipation Heparin Sodium (Porcine) (Heparin Sodium) 5,000 units SUBCUT Q8HR ALEX Piperacillin Sod/Tazobactam (Sod 3.375 gm/ Sodium Chloride) 100 mls @ 200 mls/ hr IV Q6H ALEX Ondansetron HCl (Zofran Odt) 4 mg PO Q6H PRN PRN Reason: nausea, able to take PO Ondansetron HCl (Zofran) 4 mg IVPUSH Q6H PRN PRN Reason: Nausea/Vomiting Polyethylene Glycol (Miralax) 17 gm PO DAILY PRN PRN Reason: Constipation Promethazine HCl (Phenergan) 25 mg PO Q6H PRN PRN Reason: nausea, able to take PO Promethazine HCl (Phenergan) 12.5 mg IM Q6H PRN PRN Reason: Nausea/Vomiting Senna/Docusate Sodium (Senna Plus) 1 tab PO BEDTIME PRN PRN Reason: Constipation Vancomycin HCl (Pharmacy To Dose - Vancomycin) 1 dose .XX ASDIRECTED [facility] Assessment/Plan Comment:: Assessment/Plan: Sepsis due to bilateral pneumonia: Patient with leukocytosis, pulmonary infiltrates, and worsening shortness of breath. She also has tachycardia and tachypnea. - Obtain 2nd set of blood cultures. - Start of vancomycin and zosyn - Supplemental O2, titrate to SpO2 of >92%. - Transition to BiPAP if needed. - RT to eval and treat. #Hyponatremia: Na of 128. Likely hypervolemic. - Patient with edema and pleural effusion. - IV Lasxi x1 - Daily standing weights - Strict I/Os. - Monitor Blood pressure. #Colon CA, stage IV: - Follows with Dr. Rogers. - Patient scheduled for next chemotherapy on January 27. - Per Dr. Rogers, if patient is not improving, plan is to pursue hospice. # Edema: Likely due to hypoalbuminemia. BNP low. IVF as above. DVT PPx: Heparin GI PPx: General diet, low sodium.
[2019-01-22] MEDS: Piperacillin/Tazobactam 3.375 GM in Sodium Chloride 0.9% 100 ML IV SCH ×2 (17:56→23:48)
[2019-01-22] MEDS ORDERED: Albuterol 0.083% 2.5 MG/3 ML Neb Soln NEB PRN (18:00)
[2019-01-22] MEDS ORDERED: FLUTICASONE INH PRN (20:36)
[2019-01-22] MEDS ORDERED: AZELASTINE INH PRN (20:36)
[2019-01-22] MEDS ORDERED: Rosuvastatin 10 MG Tab PO SCH (21:00)
[2019-01-22] MEDS: Heparin Sodium 5,000 Units/ML Vial SUBCUT SCH (21:13)
[2019-01-22] MEDS: Albuterol/Ipratropium 3.0-0.5 MG/3 ML Neb Soln NEB SCH (21:14)
[2019-01-22] MEDS: Dexamethasone 2 MG Tab PO SCH (21:18)
[2019-01-22] MEDS ORDERED: Zolpidem 5 MG Tab PO PRN (22:39)
[2019-01-22] MEDS: Benzonatate 100 MG Cap PO PRN (22:54)
[2019-01-23] MEDS: Albuterol/Ipratropium 3.0-0.5 MG/3 ML Neb Soln NEB SCH ×4 (01:00→18:12)
[2019-01-23] MEDS ORDERED: Omeprazole 20 MG Cap.CR PO SCH (06:00)
[2019-01-23] MEDS: Piperacillin/Tazobactam 3.375 GM in Sodium Chloride 0.9% 100 ML IV SCH ×3 (06:05→18:11)
[2019-01-23] MEDS: Heparin Sodium 5,000 Units/ML Vial SUBCUT SCH ×2 (06:05→14:35)
[2019-01-23 06:43] LABS: ANION GAP 15.3; CHLORIDE,CL 85 mmol/L (101-111); SODIUM,NA 131 mmol/L (135-145)
[2019-01-23] MEDS: Sodium Chloride 0.9% 10 ML Syringe FLUSH PRN ×6 (07:46→22:09)
[2019-01-23] MEDS ORDERED: predniSONE 20 MG Tab PO SCH (08:00)
[2019-01-23] MEDS: Dexamethasone 2 MG Tab PO SCH (08:26)
[2019-01-23] MEDS ORDERED: Fluticasone Propionate Nasal Spray 16 GM Bottle NASBOTH SCH (09:00)
[2019-01-23] MEDS ORDERED: Multivitamins,Therapeutic Tab PO SCH (09:00)
[2019-01-23] MEDS ORDERED: Fenofibrate Nanocrystallized 145 MG Tab PO SCH (09:00)
[2019-01-23] MEDS ORDERED: Psyllium 0.52 GM Cap PO SCH (09:00)
[2019-01-23] MEDS: ACETAMINOPHEN 650 MG PO SCH ×2 (09:00→13:58)
[2019-01-23] MEDS ORDERED: DULoxetine 30 MG Cap PO SCH (09:00)
[2019-01-23] MEDS ORDERED: Furosemide 40 MG/4 ML VIAL IVPUSH ONE (10:25)
--- NOTE | 2019-01-23 10:28 | PCM.PN ---
- General Info Date of Service: 01/23/19 Admission Dx/Problem (Free Text): Admission Diagnosis/Problem Admission Diagnosis/Problem Sepsis due to pneumonia - Review of Systems General: Reports: Weakness HEENT: Reports: No Symptoms Pulmonary: Reports: Shortness of Breath (O2 had to be increased to 7 this morning. ) Cardiovascular: Reports: No Symptoms Gastrointestinal: Reports: No Symptoms Genitourinary: Reports: No Symptoms Musculoskeletal: Reports: No Symptoms Skin: Reports: No Symptoms Neurological: Reports: No Symptoms Psychiatric: Reports: No Symptoms - Patient Data Vitals - Most Recent: Last Vital Signs Temp 97.8 F 01/23/19 08:00 Pulse 104 H 01/23/19 08:00 Resp 22 H 01/23/19 08:00 BP 153/74 H 01/23/19 08:00 Pulse Ox 93 L 01/23/19 08:00 Weight - Most Recent: 157 lb 12.8 oz I&O - Last 24 Hours: Intake & Output 01/22/19 01/23/19 01/23/19 22:59 06:59 14:59 Intake Total 368 750 Output Total 450 Balance -82 750 Lab Results Last 24 Hours: Laboratory Results - last 24 hr 01/22/19 01/22/19 01/22/19 Range/Units 12:49 12:49 12:49 WBC 17.5 H (5.0-10.0) 10^3/uL RBC 4.10 L (4.2-5.4) 10^6/uL Hgb 13.1 (12.0-16.0) g/dL Hct 42.1 (37.0-47.0) % MCV 102.7 H (80-100) fL MCH 32.0 (27.0-34.0) pg MCHC 31.1 L (33.0-35.0) g/dL Plt Count 235 D (150-450) 10^3/uL Neut % (Auto) 91.6 H (42.2-75.2) % Lymph % (Auto) 1.7 L (20.5-50.1) % [place] % (Auto) 6.0 (2-8) % Eos % (Auto) 0.6 L (1.0-3.0) % Baso % (Auto) 0.1 (0.0-1.0) % PT 10.2 (9.0-12.0) SEC INR 1.0 (0.9-1.2) Sodium 128 L (135-145) mmol/L Potassium 4.2 (3.6-5.0) mmol/L Chloride 80 L (101-111) mmol/L Carbon Dioxide 36.0 H (21.0-31.0) mmol/L Anion Gap 16.2 BUN 19 H (7-18) mg/dL Creatinine 0.4 L (0.6-1.3) mg/dL Est Cr Clr Drug Dosing 134.54 mL/min Estimated GFR (MDRD) > 60 BUN/Creatinine Ratio 47.50 Glucose 137 H (74-105) mg/dL Lactic Acid (0.5-2.2) mmol/L Calcium 8.9 (8.4-10.2) mg/dl Phosphorus (2.5-4.6) mg/dL Magnesium (1.8-2.5) mg/dL Total Bilirubin 1.0 (0.2-1.0) mg/dL AST 34 (10-42) IU/L ALT 20 (10-60) IU/L Alkaline Phosphatase 155 H (42-121) IU/L Troponin I 0.03 H* (0.00-0.02) ng/ml B-Natriuretic Peptide 85 (0-100) pg/ml Total Protein 6.2 L (6.7-8.2) g/dl Albumin 2.8 L (3.2-5.5) g/dl Globulin 3.4 Albumin/Globulin Ratio 0.82 Urine Color (YELLOW) Urine Appearance (CLEAR) Urine pH (5.0-9.0) Ur Specific [place] (1.005-1.030) Urine Protein (NEGATIVE) Urine Glucose (UA) (NEGATIVE) Urine Ketones (NEGATIVE) Urine Occult Blood (NEGATIVE) Urine Nitrite (NEGATIVE) Urine Bilirubin (NEGATIVE) Urine Urobilinogen (0.2-1.0) mg/dL Ur Leukocyte Esterase (NEGATIVE) Urine RBC /HPF Urine WBC (0-5/HPF) /HPF Ur Epithelial Cells (NOT SEEN) /HPF Urine Bacteria (0-FEW/HPF) /HPF Urine Mucus (NOT SEEN) /LPF Urinalysis Comment 01/22/19 01/22/19 01/23/19 Range/Units 13:10 13:13 05:55 WBC 16.7 H (5.0-10.0) 10^3/uL RBC 3.95 L (4.2-5.4) 10^6/uL Hgb 12.6 (12.0-16.0) g/dL Hct 41.0 (37.0-47.0) % MCV 103.8 H (80-100) fL MCH 31.9 (27.0-34.0) pg MCHC 30.7 L (33.0-35.0) g/dL Plt Count 280 (150-450) 10^3/uL Neut % (Auto) (42.2-75.2) % Lymph % (Auto) (20.5-50.1) % [place] % (Auto) (2-8) % Eos % (Auto) (1.0-3.0) % Baso % (Auto) (0.0-1.0) % PT (9.0-12.0) SEC INR (0.9-1.2) Sodium (135-145) mmol/L Potassium (3.6-5.0) mmol/L Chloride (101-111) mmol/L Carbon Dioxide (21.0-31.0) mmol/L Anion Gap BUN (7-18) mg/dL Creatinine (0.6-1.3) mg/dL Est Cr Clr Drug Dosing mL/min Estimated GFR (MDRD) BUN/Creatinine Ratio Glucose (74-105) mg/dL Lactic Acid 1.3 (0.5-2.2) mmol/L Calcium (8.4-10.2) mg/dl Phosphorus (2.5-4.6) mg/dL Magnesium (1.8-2.5) mg/dL Total Bilirubin (0.2-1.0) mg/dL AST (10-42) IU/L ALT (10-60) IU/L Alkaline Phosphatase (42-121) IU/L Troponin I (0.00-0.02) ng/ml B-Natriuretic Peptide (0-100) pg/ml Total Protein (6.7-8.2) g/dl Albumin (3.2-5.5) g/dl Globulin Albumin/Globulin Ratio Urine Color Jessica (YELLOW) Urine Appearance Slightly cloudy (CLEAR) Urine pH 6.5 (5.0-9.0) Ur Specific [place] >= 1.030 (1.005-1.030) Urine Protein >=300 H (NEGATIVE) Urine Glucose (UA) Negative (NEGATIVE) Urine Ketones Negative (NEGATIVE) Urine Occult Blood Trace-intact H (NEGATIVE) Urine Nitrite Negative (NEGATIVE) Urine Bilirubin Small H (NEGATIVE) Urine Urobilinogen 1.0 (0.2-1.0) mg/dL Ur Leukocyte Esterase Negative (NEGATIVE) Urine RBC 5-10 H /HPF Urine WBC 0-5 (0-5/HPF) /HPF Ur Epithelial Cells Few (NOT SEEN) /HPF Urine Bacteria Rare (0-FEW/HPF) /HPF Urine Mucus Few H (NOT SEEN) /LPF Urinalysis Comment 01/23/19 01/23/19 Range/Units 05:55 05:55 WBC (5.0-10.0) 10^3/uL RBC (4.2-5.4) 10^6/uL Hgb (12.0-16.0) g/dL Hct (37.0-47.0) % MCV (80-100) fL MCH (27.0-34.0) pg MCHC (33.0-35.0) g/dL Plt Count (150-450) 10^3/uL Neut % (Auto) (42.2-75.2) % Lymph % (Auto) (20.5-50.1) % [place] % (Auto) (2-8) % Eos % (Auto) (1.0-3.0) % Baso % (Auto) (0.0-1.0) % PT (9.0-12.0) SEC INR (0.9-1.2) Sodium 131 L (135-145) mmol/L Potassium 4.3 (3.6-5.0) mmol/L Chloride 85 L (101-111) mmol/L Carbon Dioxide 35.0 H (21.0-31.0) mmol/L Anion Gap 15.3 BUN 15 (7-18) mg/dL Creatinine 0.3 L (0.6-1.3) mg/dL Est Cr Clr Drug Dosing 179.38 mL/min Estimated GFR (MDRD) > 60 BUN/Creatinine Ratio Glucose 89 (74-105) mg/dL Lactic Acid (0.5-2.2) mmol/L Calcium 8.8 (8.4-10.2) mg/dl Phosphorus 3.7 (2.5-4.6) mg/dL Magnesium 1.7 L (1.8-2.5) mg/dL Total Bilirubin (0.2-1.0) mg/dL AST (10-42) IU/L ALT (10-60) IU/L Alkaline Phosphatase (42-121) IU/L Troponin I (0.00-0.02) ng/ml B-Natriuretic Peptide (0-100) pg/ml Total Protein (6.7-8.2) g/dl Albumin (3.2-5.5) g/dl Globulin Albumin/Globulin Ratio Urine Color (YELLOW) Urine Appearance (CLEAR) Urine pH (5.0-9.0) Ur Specific [place] (1.005-1.030) Urine Protein (NEGATIVE) Urine Glucose (UA) (NEGATIVE) Urine Ketones (NEGATIVE) Urine Occult Blood (NEGATIVE) Urine Nitrite (NEGATIVE) Urine Bilirubin (NEGATIVE) Urine Urobilinogen (0.2-1.0) mg/dL Ur Leukocyte Esterase (NEGATIVE) Urine RBC /HPF Urine WBC (0-5/HPF) /HPF Ur Epithelial Cells (NOT SEEN) /HPF Urine Bacteria (0-FEW/HPF) /HPF Urine Mucus (NOT SEEN) /LPF Urinalysis Comment Med Orders - Current: Current Medications Acetaminophen (Tylenol) 650 mg PO Q4H PRN PRN Reason: Pain Albuterol (Proventil Neb Soln) 2.5 mg NEB Q4H PRN PRN Reason: Shortness of Breath Albuterol/Ipratropium (Duoneb 3.0-0.5 Mg/3 Ml) 3 ml NEB Q6HRRT [facility] Last Admin: 01/23/19 07:25 Dose: 3 ml Benzonatate (Tessalon Perles) 100 mg PO TID PRN PRN Reason: Cough Last Admin: 01/22/19 22:54 Dose: 100 mg Dexamethasone (Dexamethasone) 2 mg PO Q12H [facility] Last Admin: 01/23/19 08:26 Dose: 2 mg Docusate Sodium (Colace) 100 mg PO BID PRN PRN Reason: Constipation Duloxetine HCl (Cymbalta) 60 mg PO DAILY [facility] Last Admin: 01/23/19 08:23 Dose: 60 mg Fenofibrate (Tricor) 145 mg PO DAILY [facility] Last Admin: 01/23/19 08:23 Dose: 145 mg Fluticasone Propionate (Flonase) 0 gm NASBOTH DAILY [facility] Last Admin: 01/23/19 08:24 Dose: Not Given Heparin Sodium (Porcine) (Heparin Sodium) 5,000 units SUBCUT Q8HR [facility] Last Admin: 01/23/19 06:05 Dose: 5,000 units Piperacillin Sod/Tazobactam (Sod 3.375 gm/ Sodium Chloride) 100 mls @ 200 mls/ hr IV Q6HR [facility] Last Admin: 01/23/19 06:05 Dose: 200 mls/hr Vancomycin HCl 1 gm/ Sodium (Chloride) 250 mls @ 166.667 mls/hr IV Q8H [facility] Last Admin: 01/23/19 07:46 Dose: 166.667 mls/hr Multivitamins (Thera) 1 each PO DAILY [facility] Last Admin: 01/23/19 08:23 Dose: 1 each Non-Formulary Medication (Acetaminophen [Acetaminophen Er]) 650 mg PO BID [facility] Non-Formulary Medication (Azelastine/Fluticasone [Dymista Nasal [place]]) 2 sprays INH Q2H PRN PRN Reason: stuffy nose Omeprazole (Omeprazole) 20 mg PO ACBREAKFAST [facility] Last Admin: 01/23/19 06:05 Dose: 20 mg Ondansetron HCl (Zofran Odt) 4 mg PO Q6H PRN PRN Reason: nausea, able to take PO Ondansetron HCl (Zofran) 4 mg IVPUSH Q6H PRN PRN Reason: Nausea/Vomiting Polyethylene Glycol (Miralax) 17 gm PO DAILY PRN PRN Reason: Constipation Prednisone (Prednisone) 20 mg PO WITHBREAKFAST [facility] Last Admin: 01/23/19 08:23 Dose: 20 mg Promethazine HCl (Phenergan) 25 mg PO Q6H PRN PRN Reason: nausea, able to take PO Promethazine HCl (Phenergan) 12.5 mg IM Q6H PRN PRN Reason: Nausea/Vomiting Psyllium Hydrophilic Mucilloid (Metamucil) 1.04 gm PO DAILY [facility] Last Admin: 01/23/19 08:22 Dose: 1.04 gm Rosuvastatin Calcium (Crestor) 20 mg PO BEDTIME [facility] Last Admin: 01/22/19 21:17 Dose: 20 mg Senna/Docusate Sodium (Senna Plus) 1 tab PO BEDTIME PRN PRN Reason: Constipation Sodium Chloride (Saline Flush) 10 ml FLUSH ASDIRECTED PRN PRN Reason: Keep Vein Open Last Admin: 01/23/19 07:46 Dose: 10 ml Vancomycin HCl (Pharmacy To Dose - Vancomycin) 1 dose .XX ASDIRECTED ALEX Zolpidem Tartrate (Ambien) 20 mg PO BEDTIME PRN PRN Reason: Sleep Last Admin: 01/22/19 22:54 Dose: 20 mg Discontinued Medications Sodium Chloride (Normal Saline) 1,000 mls @ 999 mls/hr IV .BOLUS ONE Stop: 01/22/19 13:20 Last Admin: 01/22/19 12:57 Dose: 999 mls/hr - Exam General: Alert, Oriented, Cooperative, Moderate Distress HEENT: Pupils Equal, Pupils Reactive, Mucous Membr. 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 SNOMED Code(s): 593210852, 511988229 Code(s): C18.9 - MALIGNANT NEOPLASM OF COLON, UNSPECIFIED; C78.00 - SECONDARY MALIGNANT NEOPLASM OF UNSPECIFIED LUNG Status: Acute Current Visit : No (3) Elevated troponin SNOMED Code(s): 991954012, 107656833, 238920656 Code(s): R74.8 - ABNORMAL LEVELS OF OTHER SERUM ENZYMES Status: Acute Current Visit: No (4) Pneumonia SNOMED Code(s): 666503866 Code(s): J18.9 - PNEUMONIA, UNSPECIFIED ORGANISM Status: Acute Current Visit: No Qualifiers: Pneumonia type: due to unspecified organism Laterality: bilateral Lung location: unspecified part of lung Qualified Code(s): J18.9 - Pneumonia, unspecified organism (5) Sepsis due to pneumonia SNOMED Code(s): 84625788 Code(s): J18.9 - PNEUMONIA, UNSPECIFIED ORGANISM; A41.9 - SEPSIS, UNSPECIFIED ORGANISM Status: Acute Current Visit: Yes - Problem List Review Problem List Initiated/Reviewed/Updated: Yes - My Orders Last 24 Hours: My Active Orders 01/22/19 15:29 Patient Status [ADT] Routine Ambulate [RC] ASDIRECTED Oxygen Therapy [RC] PRN Up With Assistance [RC] ASDIRECTED VTE/DVT Education [RC] PER UNIT ROUTINE Vital Signs [RC] 00,04,08,12,16,20 Acetaminophen [Tylenol] 650 mg PO Q4H PRN Docusate Sodium [Colace] 100 mg PO BID PRN Docusate Sodium/Sennosides [Senna Plus] 1 tab PO BEDTIME PRN Ondansetron [Zofran ODT] 4 mg PO Q6H PRN Ondansetron [Zofran] 4 mg IVPUSH Q6H PRN Polyethylene Glycol 3350 [MiraLAX] 17 gm PO DAILY PRN Promethazine [Phenergan] 12.5 mg IM Q6H PRN Promethazine [Phenergan] 25 mg PO Q6H PRN Resuscitation Status Routine 01/22/19 15:30 Cardiac Monitoring [RC] Intake and Output [RC] QSHIFT 01/22/19 15:45 Pharmacy to Dose - Vancomycin 1 dose .XX ASDIRECTED 01/22/19 15:48 Communication Order [RC] ROUTINE 01/22/19 15:51 Central Line Assessment [RC] 01/22/19 16:00 Vancomycin 1 gm Sodium Chloride 0.9% [Normal Saline] 250 ml IV Q8H 01/22/19 16:03 CULTURE BLOOD [BC] Routine 01/22/19 17:46 Sodium Chloride 0.9% [Saline Flush] 10 ml FLUSH ASDIRECTED PRN 01/22/19 18:00 Albuterol [Proventil Neb Soln] 2.5 mg NEB Q4H PRN Piperacillin/Tazobactam [Zosyn] 3.375 gm Sodium Chloride 0.9% [Normal Saline] 100 ml IV Q6HR 01/22/19 18:01 RT Aerosol Therapy [RC] ASDIRECTED 01/22/19 20:00 Albuterol/Ipratropium [DuoNeb 3.0-0.5 MG/3 ML] 3 ml NEB Q6HRRT 01/22/19 20:36 Azelastine/Fluticasone [Dymista Nasal [place]] 2 sprays INH Q2H PRN Benzonatate [Tessalon Perles] 100 mg PO TID PRN 01/22/19 21:00 Acetaminophen [Acetaminophen ER] 650 mg PO BID Rosuvastatin [Crestor] 20 mg PO BEDTIME dexAMETHasone 2 mg PO Q12H 01/22/19 22:00 Heparin Sodium 5,000 units SUBCUT Q8HR 01/22/19 22:39 Zolpidem [Ambien] 20 mg PO BEDTIME PRN 01/22/19 Dinner 2 Gram Sodium Diet [DIET] 01/23/19 06:00 Omeprazole 20 mg PO ACBREAKFAST 01/23/19 08:00 predniSONE 20 mg PO WITHBREAKFAST 01/23/19 09:00 DULoxetine [Cymbalta] 60 mg PO DAILY Fenofibrate Nanocrystallized [Tricor] 145 mg PO DAILY Fluticasone Propionate [Flonase] 0 gm NASBOTH DAILY Multivitamins,Therapeutic [Thera] 1 each PO DAILY Psyllium [Metamucil] 1.04 gm PO DAILY 01/23/19 13:00 Dietary Supplements [RC] 1300 01/23/19 15:30 VANCOMYCIN TROUGH [CHEM] Timed - Plan Plan:: Assessment/Plan: Sepsis due to bilateral pneumonia: Patient with leukocytosis, pulmonary infiltrates, and worsening shortness of breath. She also has tachycardia and tachypnea. - Obtain 2nd set of blood cultures. - Start of vancomycin and zosyn - Supplemental O2, titrate to SpO2 of >92%. - Transition to BiPAP if needed. - RT to eval and treat. #Hyponatremia: Improved, Na of 131, increased from Na of 128. Likely hypervolemic vs SIADH. - Patient with edema and pleural effusion. - IV Lasxi x1 - Daily standing weights - Strict I/Os. - Monitor Blood pressure. #Colon CA, stage IV: - Follows with Dr. Rogers. - Patient scheduled for next chemotherapy on January 27. - Per Dr. Rogers, if patient is not improving, plan is to pursue hospice. #Acute on chronic respiratory failure with hypoxia: - Continue supplemental O2. - Discussed with patient about consulting hospice; she wants to discuss with her . # Edema: Likely due to hypoalbuminemia. BNP low. IV lasix as above. #Hypomagnesemia: Mag of 1.7. - IV Mag sulfate. - Monitor and replete electrolytes. DVT PPx: Heparin GI PPx: General diet, low sodium.
[2019-01-23] MEDS ORDERED: Magnesium Sulfate/Water 2 GM in Premix Bag 1 BAG IV ONE (11:00)
[2019-01-23] MEDS: Benzonatate 100 MG Cap PO PRN (15:11)
[2019-01-23 18:25] VITALS: BP 154/74; PULSE 109
[2019-01-23 18:48] LABS: BASE EXCESS ARTERIAL 11 mmol/L ((-2)-(+3)); BICARBONATE,ARTERIAL 46.2 mmol/L (22-26); O2 DELIVERY DEVICE HI FLOW NASAL CANNU; O2 SATURATION ARTERIAL 82 % (95-100); PO2 ARTERIAL 59 mmHg (70-100)
[2019-01-23 18:53] LABS: PCO2 ARTERIAL 146 mmHg (35-45)
[2019-01-23] MEDS: Atropine 1% Ophth Soln 5 ML BOTTLE SL PRN ×2 (21:32→23:40)
[2019-01-23] MEDS: Morphine 2 MG/ML Syringe IVPUSH PRN (22:08)
[2019-01-24] MEDS: Sodium Chloride 0.9% 10 ML Syringe FLUSH PRN (00:14)
[2019-01-24] MEDS: Morphine 2 MG/ML Syringe IVPUSH PRN (00:14)
--- NOTE | 2019-01-30 17:46 | PCM.SN ---
- Free Text/Narrative Note: Ms Connelly is 68 y/O F with history of lung cancer with Metastasis to Colon was admitted with Respiratory Distress and her health deteriorated very rapidly and family opted for comfort/Palliative care and the comfort measure was initiated at 5:30 PM on and the pt at 01:30 AM om 01/24/19. Family was at bed site at the time of her , she was screen for organ donation and deemed ineligible.
== END 2019-01-24 03:00 | disposition expired | DRG 871 ==
LOC: DL.ED 11:45 → UNDOADMIN 15:11 → DL.MS 15:11
PROVIDERS: ADMIT Internal Medicine; ATTEND Internal Medicine
DX: A41.9 Sepsis, unspecified organism (principal); J18.9 Pneumonia, unspecified organism; J96.21 Acute and chronic respiratory failure with hypoxia; R53.1 Weakness; R06.02 Shortness of breath; C18.9 Malignant neoplasm of colon, unspecified; E87.1 Hypo-osmolality and hyponatremia; C78.00 Secondary malignant neoplasm of unspecified lung; C78.7 Secondary malignant neoplasm of liver and intrahepatic bile duct; Z51.5 Encounter for palliative care; E83.42 Hypomagnesemia; I10 Essential (primary) hypertension; K21.9 Gastro-esophageal reflux disease without esophagitis; E78.5 Hyperlipidemia, unspecified; E03.9 Hypothyroidism, unspecified; H54.7 Unspecified visual loss; R74.8 Abnormal levels of other serum enzymes; Z86.711 Personal history of pulmonary embolism; E78.00 Pure hypercholesterolemia, unspecified; M79.7 Fibromyalgia; F41.9 Anxiety disorder, unspecified; M19.90 Unspecified osteoarthritis, unspecified site; Z88.2 Allergy status to sulfonamides; Z86.718 Personal history of other venous thrombosis and embolism; Z79.899 Other long term (current) drug therapy; Z79.890 Hormone replacement therapy; R05 Cough; Z99.81 Dependence on supplemental oxygen; Z90.89 Acquired absence of other organs; Z87.891 Personal history of nicotine dependence; K59.09 Other constipation; M54.9 Dorsalgia, unspecified; G89.29 Other chronic pain; R64 Cachexia; R23.1 Pallor; R61 Generalized hyperhidrosis
CPT/HCPCS: 36415; 71045; 80053; 81001; 83605; 83880; 84484; 85025; 85610; 87040; 93005; 96360; 99285; J7030; 36600; 80048; 80202; 82803; 83735; 84100; 85027; 94640; 99284; A4217; A9270-GY; J1644; J1940; J2270; J2543; J3370; J3475; J7050; J7620-GY; J8540